=== PATIENT | female | born 1970 | race Caucasian/White ===

== ENCOUNTER → 2024-03-31 17:16 | Outpatient (CLI) | payer BC, SELFPAY ==
--- NOTE | 2024-03-31 17:18 | DI.MRI.S_ITS ---
PROCEDURE: MR ANKLE LT WO CON INDICATIONS: Pain in left ankle and joints of left foot TECHNIQUE: Noncontrast sagittal T1 spin echo and T2 fast spin echo with fat saturation, axial proton density fast spin echo and T2 fast spin echo with fat saturation, coronal T1 spin echo and T2 fast spin echo with fat saturation through the ankle/hindfoot. COMPARISON: None. FINDINGS: Image quality: Excellent Tendons: Mild tenosynovitis of the posterior tibialis. The flexor digitorum longus and the flexor hallucis longus are remarkable. The extensor tendons, is unremarkable. Longitudinal split tear of the peroneal brevis. Mild tendinosis of the distal Achilles tendon, without tear. Subcutaneous edema posterior to the distal Achilles tendon. Ligaments: The anterior and the posterior tibiofibular ligament are intact. The anterior and posterior talofibular ligament are intact. The calcaneofibular ligament is not well visualized. The deep portion of the deltoid ligament is intact. Sinus tarsi: No fibrosis. Plantar fascia: Unremarkable Muscles: Unremarkable Bones: Unremarkable. No marrow edema. No degenerative changes. Trace effusion within the tibiotalar and posterior subtalar joint. Mild subcutaneous edema of the medial and the lateral ankle. There is a 3.9 cm subcutaneous lipoma in the lateral ankle. IMPRESSION: 1. Mild tenosynovitis of the posterior tibialis. 2. Mild tendinosis of the Achilles tendon, without tear. 3. 3.9 cm subcutaneous lipoma in the lateral ankle. 4. Mild subcutaneous edema of the medial and lateral ankle. Dictated by: Nancy Rawls M.D. on 04/01/2024 at 10:24 Approved by: Nancy Rawls M.D. on 04/01/2024 at 10:31
== END ==
PROVIDERS: PCP Physician Assistant Medical; Referring Provider Family Medicine; Visit Provider Family Medicine
DX: M65.872 Other synovitis and tenosynovitis, left ankle and foot (principal); M25.572 Pain in left ankle and joints of left foot; D17.24 Benign lipomatous neoplasm of skin and subcutaneous tissue of left leg; R60.0 Localized edema
CPT/HCPCS: 73721